=== PATIENT | female | born 2005 | race African-American/Black ===

== ENCOUNTER 2024-03-21 18:17 | Emergency (ER) | payer OTHER ==
[~2024-03-21] VITALS: Ht 149.9 cm; Wt 40.9 kg
[2024-03-21 18:30] VITALS: TEMP 98.4
[2024-03-21 19:35] VITALS: BP 128/81; PULSE 74
== END 2024-03-21 19:35 | disposition home or self-care (01) ==
LOC: COL.ER 18:17
PROVIDERS: Nurse Practitioner
DX: O26.891 Other specified pregnancy related conditions, first trimester (principal); R10.30 Lower abdominal pain, unspecified; R11.0 Nausea

== ENCOUNTER 2024-04-12 13:50 | Emergency (ER) | payer OTHER ==
[~2024-04-12] VITALS: Ht 149.9 cm; Wt 44.5 kg
[2024-04-12 13:57] VITALS: TEMP 98.7
[2024-04-12 14:24] LABS: BASO # 0.1 K/mm3 (0.0-0.2); BASO % 1.1 % (0.0-2.0); EOS # 0.1 K/mm3 (0.0-0.7); EOS % 0.9 % (0.0-4.0); GRAN # 4.4 K/mm3 (1.4-6.5); GRAN % 55.5 % (42.2-75.2); HEMOGLOBIN 11.3 g/dl (12.0-15.0); LYMPH # 2.7 K/mm3 (1.2-3.4); LYMPH % 33.6 % (20.0-51.0); MEAN CELL VOLUME 70 fl (80.0-95.0); MEAN CORPUSCULAR HEMOGLOBIN 23 pg (26-32); MEAN CORPUSCULAR HGB CONC 32 g/dl (33.0-37.0); MEAN PLATELET VOLUME 9.6 fl (7.4-10.4); MONO # 0.7 K/mm3 (0.1-0.6); MONO % 8.7 % (1.7-9.3); PLATELET COUNT 250 K/mm3 (130-400); RED BLOOD COUNT 5.01 M/mm3 (4.10-5.30); REDCELL DISTRIBUTION WIDTH-CV 13.5 % (11.5-14.5)
[2024-04-12 14:26] LABS: HEMATOCRIT 35.1 % (35.0-45.0)
[2024-04-12 15:12] LABS: ALBUMIN 3.7 g/dL (3.5-5.0); BILIRUBIN,TOTAL 0.3 mg/dL (0.2-1.2); CREATININE, serum 0.64 mg/dL (0.57-1.11); POTASSIUM 3.9 mEq/L (3.5-4.5)
[2024-04-12 16:32] LABS: PH 6.5 (5.0-8.5); URINE APPEARANCE CLEAR (CLEAR/HAZY); URINE BLOOD NEGATIVE (NEGATIVE); URINE COLOR YELLOW (YELLOW); URINE GLUCOSE NEGATIVE (NEGATIVE); URINE KETONE 3+ (NEGATIVE); URINE NITRATE NEGATIVE (NEGATIVE); URINE PROTEIN(semi-quant) NEGATIVE (NEGATIVE)
[2024-04-12 16:57] VITALS: BP 122/78; PULSE 69
[2024-04-12 17:04] LABS: COLLECTION METHOD CLEAN CATCH
== END 2024-04-12 17:02 | disposition home or self-care (01) ==
LOC: COL.ER 13:50
PROVIDERS: Nurse Practitioner
DX: O99.611 Diseases of the digestive system complicating pregnancy, first trimester (principal); K59.00 Constipation, unspecified; Z3A.08 8 weeks gestation of pregnancy